=== PATIENT | female | born 1935 | race Caucasian/White ===

== ENCOUNTER 2022-04-15 05:35 | Day surgery (SDC) | payer OTHER | END 2022-04-15 09:30 | disposition home or self-care (01) | LOC: AMB-ENDOS 05:35 | PROVIDERS: ATTEND Colon & Rectal Surgery | DX: D12.5 Benign neoplasm of sigmoid colon (principal); C18.4 Malignant neoplasm of transverse colon; K57.30 Diverticulosis of large intestine without perforation or abscess without bleeding; E78.5 Hyperlipidemia, unspecified; Z79.02 Long term (current) use of antithrombotics/antiplatelets; Z79.82 Long term (current) use of aspirin; E03.9 Hypothyroidism, unspecified; Z86.010 Personal history of colon polyps ==

== ENCOUNTER 2022-10-18 12:21 | Inpatient (IN) | payer OTHER ==
[~2022-10-18] VITALS: Ht 170.2 cm; Wt 75.7 kg
[2022-10-18] MEDS ORDERED: SYNTHROID88 MCG PO (12:52)
[2022-10-18] MEDS ORDERED: CLOPIDOGREL BIS75 MG PO (12:53)
[2022-10-18] MEDS ORDERED: ATORVASTATIN CA10 MG PO (12:53)
--- NOTE | 2022-10-18 12:53 | NUR ---
PTE LLEGA EN AMBULANCIA POR SANGREADO RECTAL DESDE HACE VARIOS CARRASQUILLO.SE ACOMODA EN JOSEPH CON BARBADAS ELEVADA.
--- NOTE | 2022-10-18 13:17 | NUR ---
SE ORIENTA PTE SOBRE TX A SOBRE TX A SEGUIR, EL CUAL REFIERE ENTENDER. SE COLECTAN MUESTRAS Y SE CANALIZA PTE UTILIZANDO MEDIDAS ASEPTICAS. SE ADM. MEDICAMENTOS OLIVER ORDEN MEDICA.
[2022-11-03] MEDS ORDERED: HYOSCYAMINE0.125 M1 SL (12:50)
[2022-11-03] MEDS ORDERED: DILTIAZEM HCL30 MG PO (12:50)
[2022-11-03] MEDS ORDERED: ABANEU-SL TABL1 EACH SL (12:50)
[2022-11-03] MEDS ORDERED: GABAPENTIN100 MG PO (12:50)
[2022-11-03] MEDS ORDERED: FUSION PLUS CA1 EACH PO (12:50)
[2022-11-03] MEDS ORDERED: ATORVASTATIN CA10 MG PO (12:50)
[2022-11-03] MEDS ORDERED: SYNTHROID100 MCG PO (12:50)
[2022-11-03] MEDS ORDERED: PROTEINEX-18 LI30 ML PO (12:50)
[2022-11-03] MEDS ORDERED: Pepcid PO (12:50)
== END 2022-11-03 14:49 | disposition home or self-care (01) | DRG 330 ==
LOC: ER 12:21 → MEDI 15:27 → MEDJ 15:27 → SURH 10-29 11:09 → MEDJ 10-29 11:39
PROVIDERS: Colon & Rectal Surgery; ADMIT Internal Medicine Geriatric Medicine; ATTEND Internal Medicine Geriatric Medicine
PROC: 02H633Z Insertion of Infusion Device into Right Atrium, Percutaneous Approach (ICD-10-PCS; 2022-10-18)
PROC: B246ZZZ Ultrasonography of Right and Left Heart (ICD-10-PCS; 2022-10-18)
PROC: 30233N1 Transfusion of Nonautologous Red Blood Cells into Peripheral Vein, Percutaneous Approach (ICD-10-PCS; 2022-10-19)
PROC: B020ZZZ Computerized Tomography (CT Scan) of Brain (ICD-10-PCS; 2022-10-20)
PROC: BB24ZZZ Computerized Tomography (CT Scan) of Bilateral Lungs (ICD-10-PCS; 2022-10-20)
PROC: 0DJD8ZZ Inspection of Lower Intestinal Tract, Via Natural or Artificial Opening Endoscopic (ICD-10-PCS; 2022-10-21)
PROC: 4A033R1 Measurement of Arterial Saturation, Peripheral, Percutaneous Approach (ICD-10-PCS; 2022-10-22)
PROC: 4A12X4Z Monitoring of Cardiac Electrical Activity, External Approach (ICD-10-PCS; 2022-10-26)
PROC: B348ZZZ Ultrasonography of Bilateral Internal Carotid Arteries (ICD-10-PCS; 2022-10-27)
PROC: B345ZZZ Ultrasonography of Bilateral Common Carotid Arteries (ICD-10-PCS; 2022-10-27)
PROC: 07BB4ZZ Excision of Mesenteric Lymphatic, Percutaneous Endoscopic Approach (ICD-10-PCS; 2022-10-29)
PROC: 0DTM4ZZ Resection of Descending Colon, Percutaneous Endoscopic Approach (ICD-10-PCS; principal; 2022-10-29 10:45)
DX: C18.6 Malignant neoplasm of descending colon (principal); K62.5 Hemorrhage of anus and rectum; R65.10 Systemic inflammatory response syndrome (SIRS) of non-infectious origin without acute organ dysfunction; D50.0 Iron deficiency anemia secondary to blood loss (chronic); Z20.822 Contact with and (suspected) exposure to COVID-19; Z79.02 Long term (current) use of antithrombotics/antiplatelets; Z86.73 Personal history of transient ischemic attack (TIA), and cerebral infarction without residual deficits; Z85.3 Personal history of malignant neoplasm of breast; Z85.118 Personal history of other malignant neoplasm of bronchus and lung; Z86.010 Personal history of colon polyps